=== PATIENT | female | born 1985 | race Two or more races ===

== ENCOUNTER 2024-10-30 13:15 | Inpatient (IN) | payer OTHER ==
[~2024-10-30] VITALS: Ht 160 cm; Wt 83.5 kg
[~2024-10-30 13:15] MED LIST: PRENATAL TABLET1 TA1 PO
[2024-11-03] VITALS (11 sets, daily range): BP systolic 112–134; BP diastolic 58–75; O2SAT 99
[2024-11-03] MEDS ORDERED: VANCOMYCIN HCL 1,000 MG VIAL IV SCH (07:00)
[2024-11-03] MEDS ORDERED: RINGERS SOLUTION,LACTATED 1,000 ML IV SCH (07:00)
[2024-11-03] MEDS ORDERED: IBUprofen 400 MG TABLET PO PRN (10:45)
[2024-11-03] MEDS ORDERED: CHLORHEXIDINE GLUCONATE 120 ML BOTTLE TP SCH (10:45)
[2024-11-03] MEDS ORDERED: OXYTOCIN 1,000 ML IV SCH (10:45)
[2024-11-03] MEDS ORDERED: ACETAMINOPHEN 500 MG GEL..CAP PO PRN (10:45)
[2024-11-03] MEDS ORDERED: LIDOCAINE HCL 1% 10ML VIAL PERCUT ONE (12:30)
[2024-11-03] MEDS ORDERED: ERYTHROMYCIN BASE OPHT 1GM EACH TUBE OP ONE (12:30)
[2024-11-03] MEDS ORDERED: DOCUSATE SODIUM 100MG CAP PO SCH (17:00)
[2024-11-03 18:18] LABS: HEMOGLOBIN 10.3 g/dL (12.0-15.00); MEAN CELL VOLUME 79.4 fL (80.00-100.00); MEAN CORPUSCULAR HEMOGLOBIN 26.5 pg (27.00-32.0); MEAN CORPUSCULAR HGB CONC 33.4 g/dl (32.0-36.0); PLATELET COUNT 266 K/uL (150-450); RED CELL DISTRIBUTION WIDTH 23.1 % (11.5-14.5)
[2024-11-04 00:42] VITALS: BP 107/69
[2024-11-04 08:05] VITALS: BP 101/60
[2024-11-04] MEDS ORDERED: PNV,CALCIUM 72/IRON/FOLIC ACID 1 TAB TABLET PO SCH (09:00)
[2024-11-04 15:46] VITALS: BP 107/64
[2024-11-05 00:37] VITALS: BP 114/74
[2024-11-05 07:48] VITALS: BP 108/71
[2024-11-05 15:41] VITALS: BP 112/71
[2024-11-05 21:01] LABS: HEMATOCRIT 27.7 % (36.0-45.00); HEMOGLOBIN 9.5 g/dL (12.0-15.00); MEAN CELL VOLUME 79.9 fL (80.00-100.00); MEAN CORPUSCULAR HEMOGLOBIN 27.4 pg (27.00-32.0); MEAN CORPUSCULAR HGB CONC 34.3 g/dl (32.0-36.0); PLATELET COUNT 282 K/uL (150-450); RED BLOOD COUNT 3.46 M/uL (4.00-6.00); RED CELL DISTRIBUTION WIDTH 23.4 % (11.5-14.5)
[2024-11-06 00:55] VITALS: BP 111/72
[2024-11-06 07:59] VITALS: BP 114/61
== END 2024-11-06 18:07 | disposition home or self-care (01) | DRG 807 ==
LOC: LDR 11-03 06:28 → OB/GYN 11-03 10:17 → LDR 11-06 13:15 → OB/GYN 11-06 18:07
PROVIDERS: ADMIT General Practice; ATTEND General Practice
PROC: 10E0XZZ Delivery of Products of Conception, External Approach (ICD-10-PCS; principal; 2024-11-03)
PROC: 0W8NXZZ Division of Female Perineum, External Approach (ICD-10-PCS; 2024-11-03)
PROC: 4A1HXCZ Monitoring of Products of Conception, Cardiac Rate, External Approach (ICD-10-PCS; 2024-11-03)
DX: O66.0 Obstructed labor due to shoulder dystocia (principal); O99.824 Streptococcus B carrier state complicating childbirth; O99.02 Anemia complicating childbirth; D64.9 Anemia, unspecified; Z37.0 Single live birth; Z3A.39 39 weeks gestation of pregnancy

== ENCOUNTER 2024-11-03 01:03 | Outpatient (CLI) | payer OTHER ==
[~2024-11-03] VITALS: Ht 160 cm; Wt 83.5 kg
[2024-11-03 00:15] VITALS: BP 125/71
[2024-11-03 00:46] VITALS: BP 125/71
[2024-11-03] MEDS ORDERED: VANCOMYCIN HCL 1,000 MG VIAL IV STA (01:10)
[2024-11-03] MEDS ORDERED: RINGERS SOLUTION,LACTATED 1,000 ML IV SCH (01:15)
[2024-11-03 02:22] LABS: ALBUMIN 2.7 gm/dL (3.4-5.0); BILIRUBIN TOTAL 0.26 mg/dL (0.3-1.2); CALCIUM 9.1 mg/dL (8.5-10.1); CREATININE SERUM 0.64 mg/dL (0.55-1.02); GFR 103.85; GLOBULINA 3.7 G/DL (2.4-3.5); POTASSIUM 4.17 mEq/L (3.5-5.1); TOTAL PROTEIN 6.4 gm/dL (6.4-8.2)
[2024-11-03 02:23] LABS: HEMATOCRIT 35.4 % (36.0-45.00); MEAN CELL VOLUME 78.6 fL (80.00-100.00); MEAN CORPUSCULAR HEMOGLOBIN 26.6 pg (27.00-32.0); MEAN CORPUSCULAR HGB CONC 33.9 g/dl (32.0-36.0); PLATELET COUNT 277 K/uL (150-450); RED CELL DISTRIBUTION WIDTH 22.8 % (11.5-14.5)
[2024-11-03 02:44] LABS: INR < 0.93; PARTIAL THROMBOPLASTIN TIME 25.6 SECONDS (22.0-34.0); PROTHROMBIN TIME 10.2 SECONDS (9.0-11.5)
[2024-11-03 03:19] VITALS: BP 117/58
[2024-11-03] MEDS ORDERED: VANCOMYCIN HCL 1,000 MG VIAL IV SCH (17:00)
== END 2024-11-03 05:46 | disposition still patient (30) ==
LOC: OBS/DEL 01:03
PROVIDERS: ATTEND General Practice
DX: O26.893 Other specified pregnancy related conditions, third trimester (principal)